=== PATIENT | female | born 1985 | race Caucasian/White ===

== ENCOUNTER 2024-11-18 16:55 | Emergency (ER) | payer OTHER, SELFPAY ==
[2024-11-18 16:56] VITALS: BP 137/85
--- NOTE | 2024-11-18 17:32 | EDRN ---
Mary ARMENDARIZ student in to see pt.
--- NOTE | 2024-11-18 17:35 | EDRN ---
Pt and spouse lyme washing and some fell and got into pt's R eye. Washed out eye w/ hose on mist setting. Pt states initially could not open her eye. Pt then showered in hot water w/ steam no water on eye as afraid and eye did feel better. R eye
remains red and injected. R eye pain now a 5/10
--- NOTE | 2024-11-18 17:41 | EDRN ---
Dr. Gutierres in room w/ pt at this time.
[2024-11-18 17:51] VITALS: BMI 26.8
--- NOTE | 2024-11-18 17:52 | EDRN ---
Eye irrigation w/ normal saline set up to irrigate R eye by Dr. Gutierres.
--- NOTE | 2024-11-18 17:55 | ED.GENMED ---
History of Present Illness
General
Chief Complaint: Eye Problems
Source: patient
Time Seen by Provider: 11/18/24 17:27
History of Present Illness
History of Present Illness:
39-year-old female presents to the emergency room complaining of pain and irritation to her right eye. Patient was white washing a building when a splash of the chemical, calcium hydroxide, got into her eye. She irrigated the eye with water for a
couple minutes using the garden hose. She has persistent discomfort prompting her to come to the emergency room. She does not have any contact lenses in.
Phy Exam
Physical Exam
Physical Exam:
General: Awake, Alert, Oriented X3. No acute distress.
Vitals: unremarkable
Head: Atraumatic
Eyes: Pupils equal, EOMI, right eye injected and erythematous. No uptake of fluorescein. Patient had instantaneous relief of discomfort with tetracaine. pH paper indicates pH to be 7.5.
Throat: Airway intact, no exudates
Course
Orders/Labs/Results
Orders:
Orders
11/18/24 20:56
Fluorescein Sodium [Ful-Ellyn] 2 mg .ROUTE .STK-MED ONE
Tetracaine HCl [Tetracaine 0.5% Ophthalmic Solution] 1 drop .ROUTE .STK-MED ONE
Vital Signs
Initial and Last Documented VS:
Initial Vital Signs
Temp Pulse Resp BP Pulse Ox
97.9 F 78 16 137/85 99
11/18/24 16:56 11/18/24 16:56 11/18/24 16:56 11/18/24 16:56 11/18/24 16:56
Last Documented Vital Signs
Temp Pulse Resp BP Pulse Ox
97.9 F 67 18 127/76 98
11/18/24 16:56 11/18/24 20:07 11/18/24 20:07 11/18/24 20:07 11/18/24 20:07
MDM/Problems Addressed
Differential Diagnosis Includes:
Chemical conjunctivitis, corneal abrasion, corneal ulceration
MDM/Problems Addressed:
Patient presents with right eye pain after chemical got in her eye. pH 7.0 on pH paper. Eye irrigated with 1 L normal saline. Patient felt better
*Pulse Oximetry
Patient hypoxic: no
*Critical Care Note
Total Time (30-74mins, 75-104mins- exclusive of procedures): Not Applicable
ED Attending Note
-
Portions of this chart may have been created with voice recognition software.� Occasional wrong word or��sound alike� substitutions may have occurred due to the inherent limitations of voice recognition software.
Discharge Plan
Departure
Patient Disposition: Home (Routine Discharge)
Date of Disposition: 11/18/24
Time of Disposition: 21:15
Patient with high blood pressure during this ER visit?: No
Condition: Good
Discharge Problem:
Acute chemical conjunctivitis
Instructions: Conjunctivitis (Noninfectious Pinkeye)
Prescriptions:
No Action
PRENACARE TABLET Tab
1 tab PO DAILY
acetaminophen 325 MG tablet
650 mg PO Q4HPRN PRN (Reason: mild pain) 0RF
ibuprofen 600 MG tablet
600 mg PO Q4HPRN PRN (Reason: moderate pain/cramps) 0RF
Referrals:
Thanh Harrison MD [Family Provider] -
Interventions
Interventions:
*Risk Screen - Suicide Last Done: 11/18/24 16:58
*General Assessment Last Done: 11/18/24 17:50
*Neglect/Abuse Screening Last Done: 11/18/24 16:58
*ED- Fall Risk Assessment Last Done: 11/18/24 17:50
*ED COVID-19 Vaccine History Last Done: 11/18/24 17:50
*Nursing Disposition Last Done: 11/18/24 20:48
Discharge Date and Time
Discharge Date/Time: 11/18/24 20:48
Print Language: CHINESE
--- NOTE | 2024-11-18 18:47 | EDRN ---
Pt asking when will irrigation be done and Dr. Gutierres said when irrigation done.
[2024-11-18 20:07] VITALS: BP 127/76
== END 2024-11-18 20:48 | disposition home or self-care (01) ==
LOC: EMR 16:55
PROVIDERS: EMERGENCY PHYSICIAN Emergency Medicine; FAMILY PHYSICIAN Family Medicine
DX: T54.3X1A Toxic effect of corrosive alkalis and alkali-like substances, accidental (unintentional), initial encounter (principal); H10.211 Acute toxic conjunctivitis, right eye
CPT/HCPCS: 99282